=== PATIENT | female | born 1965 | race Caucasian/White ===

== ENCOUNTER → 2016-08-27 | Outpatient (CLI) | payer BC ==
[2016-08-27 16:32] LABS: BILIRUBIN,URINE NEGATIVE (NEG); CLARITY,URINE CLEAR (CLEAR); GLUCOSE, URINE (UA) NEGATIVE (NEG); LEUKOCYTE ESTERASE ,URINE NEGATIVE (NEG); NITRATE,URINE NEGATIVE (NEG); OCCULT BLOOD,URINE NEGATIVE (NEG); PH,URINE 5.5 (5.0-8.5); PROTEIN,URINE NEGATIVE (NEG); UROBILINOGEN,URINE 0.2 EU/dL (0.2)
[2016-08-27 16:35] LABS: URINE SAMPLE TYPE CLEAN CATCH URINE
== END ==
LOC: MOB LAB 15:14
PROVIDERS: ATTEND Physician Assistant Medical
DX: R35.0 Frequency of micturition (principal); L29.8 Other pruritus
CPT/HCPCS: 81003; 87210

== ENCOUNTER → 2016-08-28 | Outpatient (CLI) | payer BC | LOC: LAB 08:27 | PROVIDERS: ATTEND Nurse Practitioner Family | DX: L29.8 Other pruritus (principal) | CPT/HCPCS: 87491; 87591 ==

== ENCOUNTER 2016-12-22 14:05 | Observation (INO) | payer BC ==
[2016-12-22] MEDS ORDERED: ASPIRIN 81 MG (BABY) CHEWABLE TABLET PO ONE (14:21)
[2016-12-22] MEDS ORDERED: NORMAL SALINE 10 ML SYRINGE FLUSH IVP PRN (14:21)
--- NOTE | 2016-12-22 14:24 | EKG ---
[address] [address] Measurements Intervals [place] Rate: 87 P: 70 DC: 169 QRS: 36 QRSD: 90 T: 48 QT: 359 QTc: 404 Interpretive Statements SINUS RHYTHM WITH OCCASIONAL VENTRICULAR PREMATURE COMPLEXES POSSIBLE LEFT ATRIAL ENLARGEMENT POSSIBLE RIGHT VENTRICULAR CONDUCTION DELAY Compared to ECG 01/13/2016 11:23:44 Ventricular premature complex(es) now present Electronically Signed On 12-22-16 15:05:21 MDT by Rick Garibay [email or web address]
[2016-12-22] MEDS ORDERED: Sodium Chloride 0.9% 1,000 ML PRIMARY IV ONE (14:27)
[2016-12-22 14:28] LABS: BASOPHILS # (AUTO) 0.03 10*3/UL; BASOPHILS % (AUTO) 0.3 % (0-1); EOSINOPHILS # (AUTO) 0.03 10*3/UL; EOSINOPHILS % (AUTO) 0.3 % (0-8); HEMOGLOBIN 13.8 g/dL (12.0-16.0); MEAN CORPUSCULAR HEMOGLOBIN 25.5 PG (27-31); MEAN CORPUSCULAR HGB CONC 32.9 g/dL (33-37); MEAN CORPUSCULAR VOLUME 77.5 FL (81-99); MEAN PLATELET VOLUME 11.4 FL (7.4-12.2); MONOCYTES # (AUTO) 0.63 10*3/UL (0.3-0.8); MONOCYTES % (AUTO) 5.3 % (5-15); NEUTROPHILS # (AUTO) 9.63 10*3/UL; NEUTROPHILS % (AUTO) 81.1 % (50-80); RED BLOOD COUNT 5.42 10^6/uL (4.20-5.40)
[2016-12-22 14:31] LABS: PLATELET MORPHOLOGY COMMENT NORMAL MORPHOLOGY (NORM); RBC MORPHOLOGY COMMENT NORMAL MORPHOLOGY (NORM); WBC MORPHOLOGY COMMENT NORMAL MORPHOLOGY (NORM)
[2016-12-22 14:34] LABS: BLOOD UREA NITROGEN 21 mg/dL (7-22); BUN/CREATININE RATIO 26.25 (6-20); CALCIUM 9.2 mg/dL (8.7-10.7); EST GLOMERULAR FILTRATION > 60 (>60 ml/min/1.73m(2)); MAGNESIUM 1.8 mg/dL (1.6-2.4); SERUM ALBUMIN 4.3 g/dL (3.5-4.8)
[2016-12-22 14:50] LABS: CREATINE KINASE MB 3.02 NG/ML (0.00-5.00); TROPONIN I < 0.012 ng/mL (< 0.040)
[2016-12-22] MEDS ORDERED: ONDANSETRON 4 MG/2 ML VIAL IVP PRN (16:17)
[2016-12-22] MEDS ORDERED: LIDOCAINE W/ SODIUM BICARB 0.5 ML SYR SUBD PRN (16:17)
[2016-12-22] MEDS ORDERED: NITROGLYCERIN 0.4 MG SL TAB (BOTTLE OF 3) SL PRN ×2 (16:17→18:54)
[2016-12-22] MEDS ORDERED: MAG HYDROX/AL HYDROX/SIMETH 30 ML SUSP PO PRN (16:17)
--- NOTE | 2016-12-22 16:32 | PDOC ---
Chest Pain HPI - General Chief Complaint: Chest Pain Stated Complaint: CHEST PAIN Date Seen by Provider: 12/22/16 Time Seen by Provider: 14:10 Source: Patient Exam Limitations: POSITIVE: No limitations Treatment Prior to Arrival: REPORTS: None Nurse's Notes Reviewed & Considered: Yes - History of Present Illness Initial Comments: The patient is a 51-year-old female who presents to the emergency department by private vehicle with complaints of chest pain. She states that she had fairly sudden onset of mid chest pain that radiated through to her back and up into her neck while sitting on the couch at approximately 11:30 this morning. She states that she has had some similar pains off and on for the past several months however her pain is never lasted this long or been this intense. By the time she arrives in the emergency department her pain is lessening some although is still present. She denies any associated shortness of breath. She has having some palpitations and sensation of skipped beats which she states she has chronically. She denies any pain or swelling in her lower extremities. She does not have any known history of heart disease. She does have a history of hypertension however is currently not taking medication after she lost weight and her blood pressure improved. She does not have any history of tobacco use. She denies diabetes or hyperlipidemia. She does report a prior history of PE. She is not currently on any form of estrogen or hormone replacement. - Patient Home Medications Home Medications: Home Medications Methylprednisolone [Medrol] 4 mg PO BID #1 packet 12/20/16 - Patient Allergies Allergies/Adverse Reactions: Allergies Allergy/AdvReac Type Severity Reaction Status Date / Time Sulfa (Sulfonamide Allergy Intermediate RASH Verified 12/22/16 16:25 Antibiotics) Past Medical History - heen HEENT History: Denies History Cardiovascular History: Hypertension Additional Cardiovasular History: TXD IN PAST BUT NOW HAS RESOLVED WITH PATIENTS WEIGHT LOSS. Respiratory History: Pulmonary Embolism Gastrointestinal History: Denies History Genitourinary History: Denies History Endocrine History: Denies History Musculoskeletal History: Denies History Prosthesis or Implant: No Additional Musculoskeletal History: LEFT SHOULDER SURGERY Neurological History: Migraines, Other (please comment) Additional Neurological History: VERTIGO Blood Disorders: Denies History Additional Blood Disorders History: PE Psychiatric History: Denies History History of Sexually Transmitted Diseases: No Female Reproductive History: Other (please comment) Additional Female Reproductive History: PARTIAL HYSTERECTOMY Cancer History: Denies History In Past Year Been Physically Harmed or Verbally Threatened: No (PER PATIENT) History of MDRO: No History of Other Communicable Diseases: Yes (SHINGLES) Tobacco Use: Never Smoker Alcohol Use: Rarely Substance Use Type: None Previous Surgical History: Yes Type / Date of Surgery: PARTIAL HYST WITH TVT/ LEFT SHOULDER SCOPE/ EXP LAPAROTOMY FOR KINKED BOWEL/ D&C X 2/ TUBAL Anesthesia Reactions: No (DIFFICULTY WAKING UP AFTER ANESTH.) Malignant Hyperthermia: No Family History of Malignant Hyperthermia: No Significant Family History: Cancer, Hypertension Past Medical History Reviewed: Reviewed - No Changes ROS - Limitations ROS Limitations: No Limitations Constitution: DENIES: Chills, Fever Cardiovascular: REPORTS: Chest Pain, Heart Palpitations. DENIES: Heart Racing, Edema Respiratory: DENIES: Hurts To Breathe, Shortness Of Breath Neurological: REPORTS: Denies Neuro Symptoms Gastrointestinal: REPORTS: Denies GI Symptoms Musculoskeletal: REPORTS: Denies MS Symptoms Eyes: REPORTS: Denies Symptoms ENT: REPORTS: Denies Symptoms Skin: DENIES: Rash Chest Pain PE - General Appearance General Appearance: REPORTS: Alert, Cooperative, No Acute Distress - HEENT HEENT: POSITIVE: Head Inspection Nml - Neck Neck: REPORTS: Normal Inspection. DENIES: JVD Present - Respiratory Respiratory: REPORTS: No Respiratory Distress, Breath Sounds Normal - Cardiovascular Cardiovascular: REPORTS: Regular Rate and Rhythm, Heart Sounds Normal Peripheral Pulses: Dorsalis-pedis (R): 2+, Dorsalis-pedis (L): 2+ - Abdomen Abdomen: Soft: (All Quadrants), Denies Tenderness: (All Quadrants), No Distention: (All Quadrants) - Extremities Extremity: Normal ROM: (All Extremities), Normal Inspection: (All Extremities) - Neurological / Psychological Neurological: POSITIVE: Oriented X3, Motor Normal, Sensation Normal Chest Pain Progress - Results Reviewed by me Xrays/CTs/US Reviewed by me: Yes Radiology Findings: Chest x-ray shows normal heart size and normal lung sinha. Lab Results Reviewed: Yes Lab Results:: Laboratory Results 12/22/16 Range/Units 14:18 WBC 11.85 H (4.8-10.8) 10^3/uL RBC 5.42 H (4.20-5.40) 10^6/uL Hgb 13.8 (12.0-16.0) g/dL Hct 42.0 (37.0-47.0) % MCV 77.5 L (81-99) FL MCH 25.5 L (27-31) PG MCHC 32.9 L (33-37) g/dL RDW Std Deviation 40.1 (39-50) fL RDW Coeff of Pramod 14.4 (11.5-14.5) % Plt Count 220 (140-350) 10*3/uL MPV 11.4 (7.4-12.2) FL Immature Gran % (Auto) 0.3 (0-5) % Neut % (Auto) 81.1 H (50-80) % Lymph % (Auto) 12.7 (10-50) % [place] % (Auto) 5.3 (5-15) % Eos % (Auto) 0.3 (0-8) % Baso % (Auto) 0.3 (0-1) % Immature Gran # (Auto) 0.03 10*3/UL Neut # (Auto) 9.63 10*3/UL Lymph # (Auto) 1.50 10*3/uL [place] # (Auto) 0.63 (0.3-0.8) 10*3/UL Eos # (Auto) 0.03 10*3/UL Baso # (Auto) 0.03 10*3/UL WBC Morphology Comment Normal morphology (NORM) Plt Morphology Comment Normal morphology (NORM) RBC Morph Comment Normal morphology (NORM) D-Dimer 0.23 (0.00-0.59) mg/L Sodium 140 (135-145) meq/L Potassium 3.7 L (3.8-5.2) meq/L Chloride 106 (98-112) meq/L Carbon Dioxide 24 (23-33) meq/L Anion Gap 10 (5-20) BUN 21 (7-22) mg/dL Creatinine 0.8 (0.50-1.20) mg/dL Estimated GFR > 60 (>60 ml/min/1.73m(2)) BUN/Creatinine Ratio 26.25 H (6-20) Glucose 98 (78-110) mg/dL Calculated Osmolality 292.0 (267-292) mOsm/kg Calcium 9.2 (8.7-10.7) mg/dL Magnesium 1.8 (1.6-2.4) mg/dL Total Bilirubin 0.7 (0.3-1.2) mg/dL AST 23 (8-39) IU/L ALT 36 (9-52) IU/L Alkaline Phosphatase 69 (38-126) IU/L CK-MB (CK-2) 3.02 (0.00-5.00) NG/ML Troponin I < 0.012 (< 0.040) ng/mL Total Protein 7.4 (6.1-8.0) g/dL Albumin 4.3 (3.5-4.8) g/dL Globulin 3.1 (2.50-4.10) g/dL Albumin/Globulin Ratio 1.30 (1.3-2.0) mg/g EKG Interpreted/Reviewed By Me:: Yes EKG Interpretation:: POSITIVE: Normal Sinus Rhythm, Normal Rate, Normal Intervals, Normal QRS, Normal ST/T - Patient's Progress MDM / ED Course: The patient's initial EKG shows no obvious acute ST segment changes. She was given aspirin per chest pain protocol. Her pain gradually subsided and basically resolved while she was here in the emergency department. Her initial blood work including d-dimer and troponin are essentially unremarkable. Her chest x-ray is also normal. These findings were discussed with the patient. Decision was made to admit the patient for further cardiac monitoring and cardiac workup. Dr. Pearce has agreed to admit the patient and the patient is in agreement with this plan. - Consult Counseled: POSITIVE: Patient, RE: Lab Results, RE: Radiology Results, RE: DX, RE : Need for F/U Patient Care Time - Estimated PCT Patient Care Time (In Minutes): 35 Vital Signs - Recent Vital Signs Vital Signs: Vital Signs (Last 8 hours) Temp Pulse Pulse Resp BP Pulse Ox 12/22/16 14:08 98.0 F 91 91 19 164/88 97 - VS Reviewed Vital Signs Reviewed: Yes Discharge Clinical Impression: Chest pain Discharge Disposition: Admit to Observation Condition: Stable
[2016-12-22] MEDS: MORPHINE SULFATE 2 MG/1 ML IV PRN (16:50)
[2016-12-22 20:36] LABS: TROPONIN I < 0.012 ng/mL (< 0.040)
--- NOTE | 2016-12-22 21:11 | PDOC ---
History and Physical - History of Present Illness History of Present Illness: Is a very nice 59-year-old female who was seen in the emergency room complaining of chest pain she states that this was acute while she was sitting was a little short of breath with it no diaphoresis no nausea or vomiting did radiate to her back and neck pain was relieved by the time she was seen in the emergency room she is currently being treated for canker sores/singles there are her mouth not on her skin also she's been very stressful secondary to a divorce. She is chest pain-free at present time but she did have some chest pain about 2 hours ago which was relieved by nitroglycerin and CT scan of her chest was ordered to rule out PE since she does have a history of pulmonary embolus. She is also getting the resting part of her Lexiscan stress test and tomorrow she will not like to have the caffeine or chocolate since she has not taken it for 25 years . Past Medical History Medical History: Hypertension, shingles, pulmonary embolism, migraines long time ago Surgical History: PARTIAL HYST WITH TVT/ LEFT SHOULDER SCOPE/ EXP LAPAROTOMY FOR KINKED BOWEL/ D&C X 2/ TUBAL Tobacco Use: Never Smoker Substance Use Type: None Medication / Allergies Home Medications: Home Medications Medication Instructions Recorded Confirmed Type Methylprednisolone [Medrol] 4 mg PO BID #1 packet 12/20/16 12/22/16 Clinic Allergies/Adverse Reactions: Allergies Allergy/AdvReac Type Severity Reaction Status Date / Time Sulfa (Sulfonamide Allergy Intermediate RASH Verified 12/22/16 16:25 Antibiotics) Review of Systems - Review of Systems All Systems: Reviewed & No Additional Complaints Except as Stated - Constitutional Constitutional: DENIES: Weight Gain, Fever/Chills, Night Sweats, Fatigue - Integumentary Integumentary: DENIES: Negative System Review, Rash, Superficial Wound, Laceration, Puncture Wound, Foreign Body, Itching, Dryness, Ulcers, Color Changes, Moles, Hair Loss, Hirsutism, Other, See HPI - Respiratory Respiratory: DENIES: Negative System Review, Cough, Sputum, Dyspnea At Rest, Dyspnea with Exertion, Pleuritic Pain, Hemoptysis, Wheezing, Other, See HPI - Cardiovascular Cardiovascular: REPORTS: Chest Pain - Gastrointestinal Gastrointestinal / Abdominal: DENIES: Negative System Review, Nausea, Vomiting, Diarrhea, Constipation, Abdominal Pain, Bloody Stool, Poor Appetite, Heartburn, Regurgitation, Bloating, Lactose Intolerance, Melena, Bright Red Blood Per Rectum, Other, See HPI - Neurological Neurologic: DENIES: Negative System Review, Headache, Numbness/Paresthesia, Tremors, Weakness, Seizures, Head Trauma, LOC, Dizziness, Confusion, Memory Loss , Difficulty Walking, Incoordination, Other, See HPI - Psychiatric Psychiatric: REPORTS: Anxiety Exam - Vitals Vital Signs: Vital Signs Temperature 97.6 F Temperature Source Temporal Artery Scan Pulse Rate [Apical] 72 Pulse Rate [Telemetry] 76 Pulse Rate 72 Respiratory Rate 16 Blood Pressure [Right Arm] 146/87 Blood Pressure 142/93 Pulse Ox 95 Oxygen Delivery Method Room Air Height 5 ft 8 in Weight 72.121 kg - General General Appearance: POSITIVE: No Acute Distress, Cooperative - Head Head Exam: POSITIVE: Normal Inspection, Normocephalic, Atraumatic - Neck Neck Exam: POSITIVE: Normal Inspection - Respiratory Respiratory Exam: POSITIVE: Clear to Auscultation - Bilaterally, Breathing Non Labored, Normal To Percussion - Cardiovascular Cardiovascular Exam: POSITIVE: RRR, No Murmur, No Clicks, No Gallops - GI/Abdominal GI/Abdominal Exam: POSITIVE: Non Tender, Non Distended, Soft - Extremities Extremities Exam: POSITIVE: No Clubbing Present, No Edema Present, No Cyanosis Present - Neurological Neurological Exam: POSITIVE: Alert, Oriented x 3, CN II-XII Intact Results - Labs CBC and BMP: 12/22/16 14:18 12/22/16 14:18 Labs - Last 24 Hours: Laboratory Results 12/22/16 Range/Units 20:12 Total Creatine Kinase 59 (30-135) IU/L Troponin I < 0.012 (< 0.040) ng/mL Assessment and Plan - Patient Problems (1) Atypical chest pain Current Visit: Yes Status: Acute Comment: Most likely from anxiety she has been going through a stressful time nevertheless she does have a history of pulmonary embolus and the pain said is different from her usual anxiety Lexiscan stress test was ordered troponins are negative 2 CT scan results are pending discussed this with the patient and nursing (2) Anxiety Current Visit: Yes Status: Acute Comment: We will try some mild anxiety medication I think she will benefit much from this also this could be heartburn from her taking the prednisone from her shingles I will give her Protonix by mouth as well Photo / Body Diagrams - Uploaded Photos Uploaded Photos:
[2016-12-22] MEDS ORDERED: LORazepam 2 MG/1 ML VIAL IVP PRN (21:13)
--- NOTE | 2016-12-22 21:40 | DI ---
HISTORY: Chest pain. History of pulmonary embolus post shoulder surgery seven years ago. TECHNIQUE: Contiguous axial images of the chest were obtained and submitted for interpretation. FINDINGS: There is adequate opacification of the pulmonary arteries. There are no focal filling def ects noted to suggest pulmonary embolism. Irregularities noted at the distal segmental pulmonary arteries likely due to contrast streaming. There is no mediastinal, axillary, or hilar adenopathy. Thyroid gland is slightly irregular. There is no pleural or pericardial effusion. There is thickening of the esophagus. The limited sections of the upper abdomen demonstrate no acute findings. The trachea, main, and segmental bronchi demonstrate no endobronchial lesions. There is no focal pulmonary nodule or pulmonary mass. There is no pneumothorax. Bibasilar opacities suggest atelectasis. The visualized osseous structures demonstrate no destructive abnormality. Compared to prior exam 2007, the ground glass consolidation noted in the right lower lung has improve d. IMPRESSION: 1. No CT evidence of acute pulmonary embolus.
[2016-12-22] MEDS ORDERED: METHYLPREDNISOLONE 4 MG TAB DOSE PACK PO ONE (21:45)
[2016-12-22] MEDS: POTASSIUM CHLORIDE 20 MEQ TAB PO SCH (22:00)
[2016-12-22] MEDS: NORMAL SALINE 10 ML SYRINGE FLUSH IVP PRN (22:01)
[2016-12-23] MEDS: MORPHINE SULFATE 2 MG/1 ML IV PRN (02:19)
[2016-12-23] MEDS: NORMAL SALINE 10 ML SYRINGE FLUSH IVP PRN ×2 (02:20→20:30)
[2016-12-23] MEDS ORDERED: METHYLPREDNISOLONE 4 MG TAB DOSE PACK PO SCH (09:00)
[2016-12-23] MEDS ORDERED: ENOXAPARIN SODIUM 40 MG/0.4 ML SYRINGE SUBCUT SCH (09:00)
--- NOTE | 2016-12-23 12:21 | DCSUMMARY ---
Hospitalization Summary Hospital Course: Final Discharge Diagnosis: Current Visit Problems Problem Status Priority Diagnosed Code Anxiety Acute F41.9 Atypical chest pain Acute R07.89 Chest pain Acute R07.9 Diagnostic Data, Laboratory Data, and Procedures of Signifigance: Laboratory Results 12/22/16 12/22/16 12/23/16 Range/Units 14:18 20:12 02:15 WBC 11.85 H (4.8-10.8) 10^3/uL RBC 5.42 H (4.20-5.40) 10^6/uL Hgb 13.8 (12.0-16.0) g/dL Hct 42.0 (37.0-47.0) % MCV 77.5 L (81-99) FL MCH 25.5 L (27-31) PG MCHC 32.9 L (33-37) g/dL RDW Std Deviation 40.1 (39-50) fL RDW Coeff of Pramod 14.4 (11.5-14.5) % Plt Count 220 (140-350) 10*3/uL MPV 11.4 (7.4-12.2) FL Immature Gran % (Auto) 0.3 (0-5) % Neut % (Auto) 81.1 H (50-80) % Lymph % (Auto) 12.7 (10-50) % [place] % (Auto) 5.3 (5-15) % Eos % (Auto) 0.3 (0-8) % Baso % (Auto) 0.3 (0-1) % Immature Gran # (Auto) 0.03 10*3/UL Neut # (Auto) 9.63 10*3/UL Lymph # (Auto) 1.50 10*3/uL [place] # (Auto) 0.63 (0.3-0.8) 10*3/UL Eos # (Auto) 0.03 10*3/UL Baso # (Auto) 0.03 10*3/UL WBC Morphology Comment Normal morphology (NORM) Plt Morphology Comment Normal morphology (NORM) RBC Morph Comment Normal morphology (NORM) D-Dimer 0.23 (0.00-0.59) mg/L Sodium 140 (135-145) meq/L Potassium 3.7 L (3.8-5.2) meq/L Chloride 106 (98-112) meq/L Carbon Dioxide 24 (23-33) meq/L Anion Gap 10 (5-20) BUN 21 (7-22) mg/dL Creatinine 0.8 (0.50-1.20) mg/dL Estimated GFR > 60 (>60 ml/min/1.73m(2)) BUN/Creatinine Ratio 26.25 H (6-20) Glucose 98 (78-110) mg/dL Calculated Osmolality 292.0 (267-292) mOsm/kg Calcium 9.2 (8.7-10.7) mg/dL Magnesium 1.8 (1.6-2.4) mg/dL Total Bilirubin 0.7 (0.3-1.2) mg/dL AST 23 (8-39) IU/L ALT 36 (9-52) IU/L Alkaline Phosphatase 69 (38-126) IU/L Total Creatine Kinase 59 (30-135) IU/L CK-MB (CK-2) 3.02 (0.00-5.00) NG/ML Troponin I < 0.012 < 0.012 < 0.012 (< 0.040) ng/mL Total Protein 7.4 (6.1-8.0) g/dL Albumin 4.3 (3.5-4.8) g/dL Globulin 3.1 (2.50-4.10) g/dL Albumin/Globulin Ratio 1.30 (1.3-2.0) mg/g Course of Hospitalization: Missy rivera 51-year-old female who comes in admitted for chest pain she has been having a lot of stressful home situations lately going through a divorce. Troponins remain negative I discussed this with Dr. Chavez and the patient which opted of being transferred then to undergo catheter considering this is in the left main distribution she will be transferred there via ambulance ground patient is blood pressure stable at present time she will be given half a milligram of Ativan because of her anxiety before her trip no medications recommended by Dr. Chavez at this time other than the daily aspirin which she received. On the date of discharge, the patient was examined: Gen.: No acute distress, alert, nontoxic Heart: Regular rate and rhythm, no murmurs, clicks, gallops, or rubs Lungs: Clear to auscultation bilaterally, breathing is nonlabored Abdomen/GI: Normal tones on auscultation, soft, nontender, nondistended Musculoskeletal/extremities: No clubbing, cyanosis, or edema Vitals reviewed and are listed below Vital Signs (24 hrs) Temp Pulse Pulse Pulse Resp BP Pulse Ox 12/23/16 18:59 134 H 18 128/92 96 12/23/16 16:20 98.2 F 91 17 144/90 98 12/23/16 15:00 93 12/23/16 11:12 97.4 F 62 17 131/79 97 12/23/16 11:00 72 12/23/16 07:24 98.2 F 71 16 144/85 96 12/23/16 07:00 71 71 12/23/16 05:00 97.5 F 66 16 127/81 93 12/23/16 03:00 67 12/23/16 01:00 97.0 F 63 18 115/72 96 12/22/16 23:00 67 12/22/16 20:15 97.6 F 76 16 146/87 95 Assessment and Plan: 1. As per discharge assessments above 2. Disposition: [facility] under the care of Dr. Chavez 3. Condition on discharge, stable and improved. 4. Diet: As recommended by cardiology 5. Activities: resume normal activities 6. Follow-Up: 1. PCP 2. 7. Medications at the Time of Discharge: Home Medications Medication Instructions Recorded Confirmed Type Methylprednisolone [Medrol] 4 mg PO BID #1 packet 12/20/16 12/22/16 Clinic 8. Time, care, counseling and coordination of care for this discharge is greater than 30 minutes. Exam - Vitals Vital Signs: Vital Signs Temperature 97.4 F Temperature Source Temporal Artery Scan Pulse Rate [Pulse Oximeter] 62 Pulse Rate [Apical] 72 Pulse Rate [Telemetry] 66 Pulse Rate 72 Respiratory Rate 17 Blood Pressure [Right Arm] 131/79 Blood Pressure 142/93 Pulse Ox 97 Oxygen Delivery Method Room Air Height 5 ft 8 in Weight 72.121 kg Patient Problems - Patient Problem List (1) Atypical chest pain Current Visit: Yes Status: Acute (2) Anxiety Current Visit: Yes Status: Acute
[2016-12-23 13:55] LABS: BLOOD UREA NITROGEN 19 mg/dL (7-22); BUN/CREATININE RATIO 23.75 (6-20); CALCIUM 8.7 mg/dL (8.7-10.7); EST GLOMERULAR FILTRATION > 60 (>60 ml/min/1.73m(2)); SERUM ALBUMIN 3.6 g/dL (3.5-4.8)
[2016-12-23] MEDS: POTASSIUM CHLORIDE 20 MEQ TAB PO SCH ×2 (14:08→23:35)
[2016-12-23] MEDS: methylPREDNISolone 4 MG TABLET PO SCH ×3 (14:09→23:35)
--- NOTE | 2016-12-23 14:49 | STRESSTEST ---
[facility] [place] Interpretive Statements this is a very nice 51 yo female complaining of chest pain ,most likely atypical, stress part full of artifact . will await pictures [email or web address]
--- NOTE | 2016-12-23 17:56 | DI ---
HISTORY: Chest pain. PREVIOUS EXAM: None at this facility. TECHNIQUE: The patient was stressed by Dr. Pearce The standard Lexiscan protocol was used. Please see the Doctor's report. At the designated time, 30.9 mCi of 99Tc-sestimibi was injected IV. Stress gated tomograms were acquired within one hour of the i njection. For the resting scans, 30.8 mCi was injected IV and resting gated tomograms were acquired in similar fashion. Stress scans were performed on dec 22 2016; the resting scans were performed on dec 23 2016. FINDINGS: Quantitative and qualitative analyses were performed. Quantitative analysis was performed with the [facility] [id number] protocols. Very low dose limited CT scans of the chest are obtained through the level of the heart for attenuation correction of the gated stress and rest cardiac SPECT data. Non-attenuated and attenuated scans were processed for review, and the atten uated scans were used for final interpretation of this study. Review of the raw data images and software quality analyst files indicate that these series of examinations ar e of excellent quality. Stress and rest left ventricular chamber sizes are normal. Stress and rest LV EF are 81 % and 74 %, respectively. There is a very small nearly imperceptible mild degree of reversibility in a very small portion of t he anterior apex. There is normal wall motion with normal ejection fraction. Transient ischemic dilatation ratio is 0.93, with a normal range up to 1.22 for patients stressed wit h the Harris protocol and up to 1.33 for patients stressed with the Lexiscan protocol. The very low dose CT scans through the level of the heart show no coronary artery calcifications. The re is no adenopathy or evidence of lung nodules. IMPRESSION: 1. There is a very small mild intensity area of reversibility within the anterior apex. This may sim ply be artifactual, but since this is the region of the left anterior descending artery, this could r epresent underlying early disease within the left anterior descending artery. 2. There is normal wall motion and normal ejection fraction.
[2016-12-23] MEDS ORDERED: LORazepam 2 MG/1 ML VIAL IVP PRN (20:06)
[2016-12-23] MEDS ORDERED: ASPIRIN 325 MG TABLET PO SCH (20:15)
--- NOTE | 2016-12-23 21:13 | DI ---
[facility] CHEST X-RAY, 12/22/2016 2:21 PM : Clinical History: Chest pain. Previous Exam: 07/05/2008. There is no acute soft tissue or bony abnormality. Heart size is normal. Lungs are clear. Mediastinal structures are normal. There are no pulmonary nodules. Reading: Normal chest x-ray.
[2016-12-23 22:52] VITALS: RESP 16; TEMP 98
[2016-12-24] MEDS ORDERED: methylPREDNISolone 4 MG TABLET PO SCH (06:30)
[2016-12-25] MEDS ORDERED: METHYLPREDNISOLONE 4 MG TAB DOSE PACK PO SCH (06:30)
== END 2016-12-23 20:47 | disposition short-term general hospital (02) ==
LOC: ER 14:05 → MED/SURG 15:57
PROVIDERS: ADMIT Internal Medicine; ATTEND Internal Medicine
DX: R07.89 Other chest pain (principal); F41.9 Anxiety disorder, unspecified
CPT/HCPCS: 36415; 71010; 71275; 78452; 80053 ×2; 82550; 82553; 83735; 84484 ×2; 85025; 85379; 93005; 93010; 93016; 93017; 93018; 96374 ×2; 96375; 99284 ×2; A9500; J1650; J2785; J2060; J2270; J7030

== ENCOUNTER 2017-01-07 09:36 | Emergency (ER) | payer BC ==
[2017-01-07] MEDS ORDERED: ONDANSETRON 4 MG/2 ML VIAL IVP ONE (09:55)
[2017-01-07] MEDS ORDERED: LORazepam 2 MG/1 ML VIAL IVP ONE (09:55)
[2017-01-07] MEDS ORDERED: ASPIRIN 81 MG (BABY) CHEWABLE TABLET ONE (09:55)
[2017-01-07] MEDS ORDERED: ASPIRIN 81 MG (BABY) CHEWABLE TABLET PO ONE (09:55)
[2017-01-07] MEDS ORDERED: NITROGLYCERIN 0.4 MG SL TAB (BOTTLE OF 3) SL ONE ×2 (09:55)
[2017-01-07] MEDS ORDERED: MORPHINE SULFATE 4 MG/1 ML IVP ONE (09:55)
[2017-01-07] MEDS ORDERED: Sodium Chloride 0.9% 1,000 ML PRIMARY IV ONE (09:55)
--- NOTE | 2017-01-07 10:00 | PDOC ---
Chest Pain HPI - General Chief Complaint: Chest Pain Stated Complaint: chest pain Date Seen by Provider: 01/07/17 Time Seen by Provider: 09:52 Source: Patient, Old records Exam Limitations: POSITIVE: No limitations Treatment Prior to Arrival: REPORTS: None Nurse's Notes Reviewed & Considered: Yes - History of Present Illness Initial Comments: This is a very pleasant, tearful, 51-year-old female complaining of chest pain. She describes her chest pain as pressure like someone pushing on her chest. The pain radiates into her bilateral neck and into her back. She was seen approximately one week ago for the same symptoms and failed a nuclear stress test. She was started on a statin and lisinopril as well as hypertensive medications and has had no further problems until this morning. The heart catheterization that was done showed approximately 40-60% blockage she is unsure of which artery is blocked. She has some associated shortness of breath. She denies any fever chills or sweats, nausea vomiting or diarrhea, she denies myalgias and arthralgias. No hematuria or dysuria. Symptoms began approximately 0800 hours this morning. She has a history of previous DVT and PE. Body Location Affected: REPORTS: Chest Timing: REPORTS: Abrupt Duration: 1-3 hours Severity: Moderate Context: REPORTS: Rest Quality: REPORTS: "Pain", Sharpness, Pressure Radiation: REPORTS: Jaw (R), Jaw (L), Back Associated Symptoms: REPORTS: Shortness of Breath Modifying Factors: improves with: None Reported Similar Symptoms Previously: Yes Recently seen/treated/hospitalized: Yes Any Prior Injuries Related to Current Complaint?: No - Patient Home Medications Home Medications: Home Medications Atorvastatin Calcium 1 tab PO DAILY tab 12/28/16 Lisinopril 1 tab PO DAILY tab 12/28/16 Aspirin [Aspir 81] 81 mg PO DAILY 01/07/17 Metoprolol Succinate 25 mg PO DAILY 01/07/17 - Patient Allergies Allergies/Adverse Reactions: Allergies Allergy/AdvReac Type Severity Reaction Status Date / Time Sulfa (Sulfonamide Allergy Intermediate RASH Verified 01/07/17 09:51 Antibiotics) Past Medical History - heen HEENT History: Denies History Cardiovascular History: Hypertension Additional Cardiovasular History: TXD IN PAST BUT NOW HAS RESOLVED WITH PATIENTS WEIGHT LOSS. Respiratory History: Pulmonary Embolism Gastrointestinal History: Denies History Genitourinary History: Denies History Endocrine History: Denies History Musculoskeletal History: Denies History Prosthesis or Implant: No Additional Musculoskeletal History: LEFT SHOULDER SURGERY Neurological History: Migraines, Other (please comment) Additional Neurological History: VERTIGO Blood Disorders: Denies History Additional Blood Disorders History: PE Psychiatric History: Denies History History of Sexually Transmitted Diseases: No Cancer History: Denies History History of MDRO: No History of Other Communicable Diseases: Yes (SHINGLES) Alcohol Use: Rarely Substance Use Type: None Previous Surgical History: Yes Type / Date of Surgery: PARTIAL HYST WITH TVT/ LEFT SHOULDER SCOPE/ EXP LAPAROTOMY FOR KINKED BOWEL/ D&C X 2/ TUBAL Anesthesia Reactions: No (DIFFICULTY WAKING UP AFTER ANESTH.) Malignant Hyperthermia: No Significant Family History: Cancer, Hypertension ROS - Limitations ROS Limitations: No Limitations Constitution: REPORTS: Denies Symptoms Cardiovascular: REPORTS: Chest Pain Respiratory: REPORTS: Shortness Of Breath Neurological: REPORTS: Denies Neuro Symptoms Gastrointestinal: REPORTS: Denies GI Symptoms Endocrine: REPORTS: Denies Symptoms Musculoskeletal: REPORTS: Back Pain Genitourinary: REPORTS: Denies Symptoms Eyes: REPORTS: Denies Symptoms ENT: REPORTS: Denies Symptoms Skin: REPORTS: Denies Skin Symptoms Lympathic: REPORTS: Denies Lympathic Symptoms Immunologic: POSITIVE: Denies Symptoms Psychiatric: POSITIVE: Anxiety Chest Pain PE - General Appearance General Appearance: REPORTS: Alert, Cooperative, No Evidence of Trauma, Moderate Distress - HEENT HEENT: POSITIVE: Head Inspection Nml, Eyes Inspection Nml, Ears Inspection Nml, Nose Inspection Nml, PERRL, EOMI - Neck Neck: REPORTS: Normal Inspection - Respiratory Respiratory: REPORTS: No Respiratory Distress, Breath Sounds Normal, Chest Non- Tender - Cardiovascular Cardiovascular: REPORTS: Regular Rate and Rhythm, Heart Sounds Normal, No Murmur , No Gallop, No Friction Rub, No JVD - Abdomen Abdomen: Soft: (All Quadrants), Normal Bowel Sounds: (All Quadrants), Denies Tenderness: (All Quadrants) - Skin Skin: REPORTS: Intact, Normal For Race, Warm, Dry, No Rash - Extremities Extremity: Non-Tender: (All Extremities), Normal ROM: (All Extremities), Normal Inspection: (All Extremities), Pelvis Stable: (All Extremities) - Neurological / Psychological Neurological: POSITIVE: Affect Apporpriate, Oriented X3, Motor Normal, Sensation Normal Chest Pain Progress - Results Reviewed by me Xrays/CTs/US Reviewed by me: Yes Discussed with Radiologist: Yes Lab Results Reviewed: Yes Lab Results:: Laboratory Results 01/07/17 01/07/17 Range/Units 09:58 12:31 WBC 9.92 (4.8-10.8) 10^3/uL RBC 5.40 (4.20-5.40) 10^6/uL Hgb 13.5 (12.0-16.0) g/dL Hct 42.2 (37.0-47.0) % MCV 78.1 L (81-99) FL MCH 25.0 L (27-31) PG MCHC 32.0 L (33-37) g/dL RDW Std Deviation 40.5 (39-50) fL RDW Coeff of Pramod 14.4 (11.5-14.5) % Plt Count 193 (140-350) 10*3/uL MPV 11.5 (7.4-12.2) FL Immature Gran % (Auto) 0.3 (0-5) % Neut % (Auto) 67.0 (50-80) % Lymph % (Auto) 22.5 (10-50) % [place] % (Auto) 7.9 (5-15) % Eos % (Auto) 1.9 (0-8) % Baso % (Auto) 0.4 (0-1) % Immature Gran # (Auto) 0.03 10*3/UL Neut # (Auto) 6.65 10*3/UL Lymph # (Auto) 2.23 10*3/uL [place] # (Auto) 0.78 (0.3-0.8) 10*3/UL Eos # (Auto) 0.19 10*3/UL Baso # (Auto) 0.04 10*3/UL WBC Morphology Comment Normal morphology (NORM) Plt Morphology Comment Normal morphology (NORM) RBC Morph Comment Normal morphology (NORM) D-Dimer 0.43 (0.00-0.59) mg/L Sodium 139 (135-145) meq/L Potassium 3.8 (3.8-5.2) meq/L Chloride 104 (98-112) meq/L Carbon Dioxide 24 (23-33) meq/L Anion Gap 11 (5-20) BUN 20 (7-22) mg/dL Creatinine 0.8 (0.50-1.20) mg/dL Estimated GFR > 60 (>60 ml/min/1.73m(2)) BUN/Creatinine Ratio 25.00 H (6-20) Glucose 102 (78-110) mg/dL Calculated Osmolality 290.0 (267-292) mOsm/kg Calcium 8.7 (8.7-10.7) mg/dL Magnesium 1.7 (1.6-2.4) mg/dL Total Bilirubin 0.5 (0.3-1.2) mg/dL AST 36 (8-39) IU/L ALT 33 (9-52) IU/L Alkaline Phosphatase 53 (38-126) IU/L Troponin I < 0.012 < 0.012 (< 0.040) ng/mL C-Reactive Protein < 0.5 (0.0-0.9) mg/dL Total Protein 6.7 (6.1-8.0) g/dL Albumin 4.1 (3.5-4.8) g/dL Globulin 2.6 (2.50-4.10) g/dL Albumin/Globulin Ratio 1.50 (1.3-2.0) mg/g TSH 1.01 (0.2700-4.2000) uIU/mL Free T4 0.93 (0.93-1.71) ng/dL EKG Interpretation:: POSITIVE: Normal Sinus Rhythm, Normal Intervals, Normal ST/ T - Patient's Progress Pain Medication Addressed: POSITIVE: Yes Re-Examine Time: 13:04 Status: POSITIVE: Improved MDM / ED Course: Patient was examined, IV started, blood drawn and sent to the lab for studies, radiographic and EKG studies were obtained. Patient received 324 mg of baby aspirin, sublingual nitroglycerin, normal saline, Zofran, and morphine sulfate. Her pain gradually improved over time. Findings: CBC is unremarkable, comprehensive metabolic panel is within normal limits, serial troponins are 0, EKG shows sinus rhythm with rate of approximately 84 beats a minute per my interpretation, chest x-ray shows no acute cardiopulmonary decompensation. Assessment: Chest pain with normal EKG and troponins. Plan: Discharge home. Follow up with her search coordinator Dr. Chavez in [facility]. Return to the emergency room if there is return of symptoms. Quality Measure Initiative: CP/AMI: POSITIVE: EKG, ASA Quality Measure Initiative: CAP: POSITIVE: CXR or CT - Consult Counseled: POSITIVE: Patient, RE: Lab Results, RE: Radiology Results, RE: DX, RE : Need for F/U Patient Care Time - Estimated PCT Patient Care Time (In Minutes): 45 Vital Signs - Recent Vital Signs Vital Signs: Vital Signs (Last 8 hours) Temp Pulse Pulse Resp BP Pulse Ox 01/07/17 09:43 98.2 F 101 H 101 H 18 147/87 99 - VS Reviewed Vital Signs Reviewed: Yes Discharge Clinical Impression: Chest pain Discharge Disposition: Discharged to Home Condition: Stable Patient Instructions Given at Discharge: Chest Pain (ED)
[2017-01-07 10:04] LABS: BASOPHILS # (AUTO) 0.04 10*3/UL; BASOPHILS % (AUTO) 0.4 % (0-1); EOSINOPHILS # (AUTO) 0.19 10*3/UL; EOSINOPHILS % (AUTO) 1.9 % (0-8); HEMATOCRIT 42.2 % (37.0-47.0); HEMOGLOBIN 13.5 g/dL (12.0-16.0); LYMPHOCYTES # (AUTO) 2.23 10*3/uL; MEAN CORPUSCULAR VOLUME 78.1 FL (81-99); MEAN PLATELET VOLUME 11.5 FL (7.4-12.2); MONOCYTES # (AUTO) 0.78 10*3/UL (0.3-0.8); MONOCYTES % (AUTO) 7.9 % (5-15); NEUTROPHILS # (AUTO) 6.65 10*3/UL
[2017-01-07 10:05] LABS: PLATELET MORPHOLOGY COMMENT NORMAL MORPHOLOGY (NORM); RBC MORPHOLOGY COMMENT NORMAL MORPHOLOGY (NORM); WBC MORPHOLOGY COMMENT NORMAL MORPHOLOGY (NORM)
[2017-01-07 10:11] LABS: BLOOD UREA NITROGEN 20 mg/dL (7-22); CALCIUM 8.7 mg/dL (8.7-10.7); EST GLOMERULAR FILTRATION > 60 (>60 ml/min/1.73m(2)); MAGNESIUM 1.7 mg/dL (1.6-2.4); SERUM ALBUMIN 4.1 g/dL (3.5-4.8)
[2017-01-07 10:16] LABS: C-REACTIVE PROTEIN < 0.5 mg/dL (0.0-0.9)
[2017-01-07 10:20] VITALS: RESP 18; TEMP 98.2
[2017-01-07 10:33] LABS: FREE T4 (FREE THYROXINE) 0.93 ng/dL (0.93-1.71)
--- NOTE | 2017-01-07 11:00 | DI ---
AP CHEST X-RAY, 01/07/2017 9:55 AM : Clinical History: Chest pain Previous Exam: December 22, 2016 There is no acute soft tissue or bony abnormality. Heart size is normal. Lungs are clear. Mediastinal structures are normal. There are no pulmonary nodules. There is stable widening of the left acromioclavicular joint and mild degenerative changes of the rig ht acromioclavicular joint. Reading: Normal chest x-ray.
--- NOTE | 2017-01-07 11:59 | EKG ---
[address] [address] Measurements Intervals [place] Rate: 89 P: 76 DC: 169 QRS: 69 QRSD: 103 T: 66 QT: 352 QTc: 399 Interpretive Statements SINUS RHYTHM POSSIBLE RIGHT VENTRICULAR CONDUCTION DELAY [RSR (QR) IN V1/V2] Compared to ECG 12/22/2016 15:08:54 Ventricular premature complex(es) no longer present Criterion for Left Atrial Enlargement no longer present Electronically Signed On 01-08-17 12:16:37 MDT by Irving Grewal MD [id number]
== END 2017-01-07 13:18 | disposition home or self-care (01) ==
LOC: ER 09:36
DX: R07.9 Chest pain, unspecified (principal); R06.02 Shortness of breath; Z86.718 Personal history of other venous thrombosis and embolism
CPT/HCPCS: 36415; 71010; 80053; 83735; 84439; 84443; 84484; 85025; 85379; 86140; 93005; 93010; 96374; 96375; 99284; J2060; J2270; J2405; J7030

== ENCOUNTER 2017-03-19 14:00 | Emergency (ER) | payer BC ==
[2017-03-19] MEDS ORDERED: NORMAL SALINE 10 ML SYRINGE FLUSH IVP PRN (14:14)
[2017-03-19] MEDS ORDERED: NITROGLYCERIN 0.4 MG SL TAB (BOTTLE OF 3) SL PRN (14:14)
[2017-03-19] MEDS ORDERED: ASPIRIN 81 MG (BABY) CHEWABLE TABLET PO ONE (14:14)
--- NOTE | 2017-03-19 14:16 | EKG ---
[address] [address] Measurements Intervals [place] Rate: 86 P: 60 CO: 178 QRS: 39 QRSD: 89 T: 46 QT: 358 QTc: 401 Interpretive Statements SINUS RHYTHM Compared to ECG 01/07/2017 09:43:13 No significant changes Electronically Signed On 03-19-17 16:19:48 MDT by Rick Garibay [id number]
[2017-03-19 14:21] LABS: BASOPHILS # (AUTO) 0.08 10*3/UL; EOSINOPHILS # (AUTO) 0.16 10*3/UL; HEMATOCRIT 41.6 % (37.0-47.0); HEMOGLOBIN 13.5 g/dL (12.0-16.0); LYMPHOCYTES # (AUTO) 1.84 10*3/uL; MEAN CORPUSCULAR HEMOGLOBIN 25.7 PG (27-31); MEAN CORPUSCULAR HGB CONC 32.5 g/dL (33-37); MEAN CORPUSCULAR VOLUME 79.1 FL (81-99); MEAN PLATELET VOLUME 11.6 FL (7.4-12.2); MONOCYTES # (AUTO) 0.55 10*3/UL (0.3-0.8); NEUTROPHILS # (AUTO) 5.26 10*3/UL; NEUTROPHILS % (AUTO) 66.6 % (50-80); RED BLOOD COUNT 5.26 10^6/uL (4.20-5.40)
[2017-03-19 14:26] LABS: BLOOD UREA NITROGEN 21 mg/dL (7-22); BUN/CREATININE RATIO 23.33 (6-20); CALCIUM 9.5 mg/dL (8.7-10.7); EST GLOMERULAR FILTRATION > 60 (>60 ml/min/1.73m(2)); SERUM ALBUMIN 4.4 g/dL (3.5-4.8)
[2017-03-19 14:29] LABS: PLATELET MORPHOLOGY COMMENT NORMAL MORPHOLOGY (NORM); RBC MORPHOLOGY COMMENT NORMAL MORPHOLOGY (NORM); WBC MORPHOLOGY COMMENT NORMAL MORPHOLOGY (NORM)
[2017-03-19 14:32] VITALS: RESP 16; TEMP 98.9
[2017-03-19 14:39] LABS: CREATINE KINASE MB 2.99 NG/ML (0.00-5.00)
[2017-03-19 14:57] LABS: TROPONIN I < 0.012 ng/mL (< 0.040)
--- NOTE | 2017-03-19 17:11 | DI ---
Chest pain Comparison: December 30, 2016 Heart size normal. Pulmonary vasculature unremarkable Lungs fully expanded and clear. No pleural effusion. Impression Unremarkable plain film study of the chest
--- NOTE | 2017-03-19 19:27 | PDOC ---
Chest Pain HPI - General Chief Complaint: Chest Pain Stated Complaint: CHEST PAIN STARTING YESTERDAY, WORSE TODAY Date Seen by Provider: 03/19/17 Time Seen by Provider: 14:00 Source: Patient Exam Limitations: POSITIVE: No limitations Treatment Prior to Arrival: REPORTS: None Nurse's Notes Reviewed & Considered: Yes - History of Present Illness Initial Comments: The patient is a 51-year-old female who presents to the emergency department with chest pain. She states that yesterday early afternoon she had onset of some chest pain and tightness as well as some tightness in the back of her neck and throat. This pain persisted through the night last night and this morning worsened somewhat after riding her bike. She has had continued pain all day which seemed to be getting slightly worse this afternoon. Her pain is not worsened with taking deep breath. She denies palpitations, shortness of breath , diaphoresis, nausea or vomiting or any other associated complaints. She was evaluated here in our hospital in December with complaints of chest pain. She had been admitted to the hospital at which time she had an abnormal nuclear stress test. She had been referred to [facility] and underwent cardiac catheterization per Dr. Stephens. 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 She had initially been started on multiple medications. She went to Dr. Young for a second plumbing designer opinion and he had taken her off of all of her medications except for Lipitor and aspirin. She states that since December she has had some mild intermittent chest pains and was evaluated one time here in the emergency room and had a negative workup. She denies any abdominal pain or heartburn symptoms. She does report that she was lifting heavy cases of water yesterday prior to onset of pain. - Patient Home Medications Home Medications: Home Medications Atorvastatin Calcium 1 tab PO DAILY tab 12/28/16 Aspirin [Aspir 81] 81 mg PO DAILY 01/07/17 - Patient Allergies Allergies/Adverse Reactions: Allergies Allergy/AdvReac Type Severity Reaction Status Date / Time Sulfa (Sulfonamide Allergy Intermediate RASH Verified 03/19/17 14:20 Antibiotics) Past Medical History - heen HEENT History: Denies History Cardiovascular History: Hypertension Additional Cardiovasular History: TXD IN PAST BUT NOW HAS RESOLVED WITH PATIENTS WEIGHT LOSS. PATIENT RECENTLY DIAGNOSED WITH A BLOCKAGE OF "HER MAIN ARTERY" FOLLOWING A FAILED NUCLEAR STRESS TEST AND CARDIAC CATHETERIZATION WITH DR COLEMAN. Respiratory History: Pulmonary Embolism Gastrointestinal History: Denies History Genitourinary History: Denies History Endocrine History: Denies History Musculoskeletal History: Denies History Prosthesis or Implant: No Additional Musculoskeletal History: LEFT SHOULDER SURGERY Neurological History: Migraines, Other (please comment) Additional Neurological History: VERTIGO Blood Disorders: Denies History Additional Blood Disorders History: PE Psychiatric History: Denies History History of Sexually Transmitted Diseases: No Female Reproductive History: Hysterectomy LMP: 4 YEARS AGO Cancer History: Denies History In Past Year Been Physically Harmed or Verbally Threatened: No (PER PATIENT) History of MDRO: No History of Other Communicable Diseases: Yes (SHINGLES) Tobacco Use: Never Smoker Alcohol Use: Occasionally Substance Use Type: None Previous Surgical History: Yes Type / Date of Surgery: PARTIAL HYST WITH TVT/ LEFT SHOULDER SCOPE/ EXP LAPAROTOMY FOR KINKED BOWEL/ D&C X 2/ TUBAL Anesthesia Reactions: No (DIFFICULTY WAKING UP AFTER ANESTH.) Malignant Hyperthermia: No Family History of Malignant Hyperthermia: No Significant Family History: Cancer, Hypertension Past Medical History Reviewed: Reviewed - No Changes ROS - Limitations ROS Limitations: No Limitations Constitution: DENIES: Chills, Fever Cardiovascular: REPORTS: Chest Pain, Other (She reports that her blood pressure this morning at home was in the 140s over 90s). DENIES: Heart Racing, Heart Palpitations, Edema Respiratory: REPORTS: Denies Resp Symptoms. DENIES: Hurts To Breathe, Shortness Of Breath Neurological: REPORTS: Denies Neuro Symptoms Gastrointestinal: REPORTS: Denies GI Symptoms Eyes: REPORTS: Denies Symptoms ENT: REPORTS: Denies Symptoms Skin: DENIES: Rash Chest Pain PE - General Appearance General Appearance: REPORTS: Alert, Cooperative, No Acute Distress - HEENT HEENT: POSITIVE: Head Inspection Nml, Eyes Inspection Nml, Ears Inspection Nml, Pharynx Inspect. Nml, PERRL, EOMI - Neck Neck: REPORTS: Normal Inspection. DENIES: JVD Present - Respiratory Respiratory: REPORTS: No Respiratory Distress, Breath Sounds Normal, Other ( Palpation of the left anterior upper chest wall does result in some shooting pain towards her back and lower neck) - Cardiovascular Cardiovascular: REPORTS: Regular Rate and Rhythm, Heart Sounds Normal Peripheral Pulses: Dorsalis-pedis (R): 2+, Dorsalis-pedis (L): 2+ - Abdomen Abdomen: Soft: (All Quadrants), Denies Tenderness: (All Quadrants), No Distention: (All Quadrants) - Skin Skin: REPORTS: Intact, No Rash - Extremities Extremity: Normal ROM: (All Extremities), Normal Inspection: (All Extremities) - Neurological / Psychological Neurological: POSITIVE: Other (No focal neurologic deficits) Chest Pain Progress - Results Reviewed by me Xrays/CTs/US Reviewed by me: Yes Discussed with Radiologist: Yes Radiology Findings: Chest x-ray is normal per radiologist. Lab Results Reviewed: Yes Lab Results:: Laboratory Results 03/19/17 Range/Units 14:17 WBC 7.90 (4.8-10.8) 10^3/uL RBC 5.26 (4.20-5.40) 10^6/uL Hgb 13.5 (12.0-16.0) g/dL Hct 41.6 (37.0-47.0) % MCV 79.1 L (81-99) FL MCH 25.7 L (27-31) PG MCHC 32.5 L (33-37) g/dL RDW Std Deviation 40.7 (39-50) fL RDW Coeff of Pramod 14.1 (11.5-14.5) % Plt Count 181 (140-350) 10*3/uL MPV 11.6 (7.4-12.2) FL Immature Gran % (Auto) 0.1 (0-5) % Neut % (Auto) 66.6 (50-80) % Lymph % (Auto) 23.3 (10-50) % [place] % (Auto) 7.0 (5-15) % Eos % (Auto) 2.0 (0-8) % Baso % (Auto) 1.0 (0-1) % Immature Gran # (Auto) 0.01 10*3/UL Neut # (Auto) 5.26 10*3/UL Lymph # (Auto) 1.84 10*3/uL [place] # (Auto) 0.55 (0.3-0.8) 10*3/UL Eos # (Auto) 0.16 10*3/UL Baso # (Auto) 0.08 10*3/UL WBC Morphology Comment Normal morphology (NORM) Plt Morphology Comment Normal morphology (NORM) RBC Morph Comment Normal morphology (NORM) D-Dimer < 0.19 (0.00-0.59) mg/L Sodium 140 (135-145) meq/L Potassium 3.7 L (3.8-5.2) meq/L Chloride 106 (98-112) meq/L Carbon Dioxide 23 (23-33) meq/L Anion Gap 11 (5-20) BUN 21 (7-22) mg/dL Creatinine 0.9 (0.50-1.20) mg/dL Estimated GFR > 60 (>60 ml/min/1.73m(2)) BUN/Creatinine Ratio 23.33 H (6-20) Glucose 107 (78-110) mg/dL Calculated Osmolality 292.0 (267-292) mOsm/kg Calcium 9.5 (8.7-10.7) mg/dL Total Bilirubin 0.7 (0.3-1.2) mg/dL AST 47 H (8-39) IU/L ALT 35 (9-52) IU/L Alkaline Phosphatase 58 (38-126) IU/L CK-MB (CK-2) 2.99 (0.00-5.00) NG/ML Troponin I < 0.012 (< 0.040) ng/mL Total Protein 6.9 (6.1-8.0) g/dL Albumin 4.4 (3.5-4.8) g/dL Globulin 2.5 (2.50-4.10) g/dL Albumin/Globulin Ratio 1.70 (1.3-2.0) mg/g EKG Interpreted/Reviewed By Me:: Yes EKG Interpretation:: POSITIVE: Normal Sinus Rhythm, Normal Rate, Normal QRS, Normal ST/T - Patient's Progress MDM / ED Course: EKG done shortly after arrival revealed normal sinus rhythm with no acute ST segment or T-wave changes. She did receive aspirin per chest pain protocol. Her pain level on arrival was about a 5 out of 10. Her blood pressure was also elevated in the 170s over 90s. She did receive 1 dose of nitroglycerin. She had some minimal improvement in pain. Her blood pressure came down into the 140s over 80s. All of her blood work including d-dimer and troponin were normal. I did discuss the patient with the plumbing designer on-call for Dr. young who was Dr. Wilson. Given that she has a normal EKG and a normal troponin after nearly 24 hours of continuous pain she has essentially ruled out as far as ID. Her symptoms and clinical presentation are not consistent with unstable angina. He thought that this pain was most likely not cardiac in etiology. These findings were discussed with the patient. She was doing some heavy lifting yesterday and this may represent some musculoskeletal pain. At this time recommended ibuprofen 4-600 mg every 6 hours as needed for pain. She is advised return to the emergency room if she develops any worsening or change in symptoms. She'll follow-up with primary care in 3-5 days. - Consult Counseled: POSITIVE: Patient, RE: Lab Results, RE: Radiology Results, RE: DX, RE : Need for F/U Patient Care Time - Estimated PCT Patient Care Time (In Minutes): 40 Vital Signs - Recent Vital Signs Vital Signs: Vital Signs (Last 8 hours) Temp Pulse Pulse Resp BP Pulse Ox 03/19/17 14:05 86 03/19/17 14:00 98.9 F 97 16 174/95 97 - VS Reviewed Vital Signs Reviewed: Yes Discharge Clinical Impression: Chest pain Discharge Disposition: Discharged to Home Condition: Stable Patient Instructions Given at Discharge: Chest Pain (ED) Additional Instructions: All the testing done here in the emergency department today was reassuring. The EKG did not show any evidence of heart attack and your blood work was all reassuring. I did discuss her symptoms with the plumbing designer ton container filler in [place] and he did not feel that sure current pain was cardiac related. Given that shoe or lifting water bottles yesterday this may be musculoskeletal pain. Recommend ibuprofen 4-600 mg every 6 hours as needed for pain. Return to the emergency room if increased pain, shortness of breath, palpitations, any worsening or change in symptoms. Recommend follow-up with Patricio Camara in 3- 5 days. Follow Up With: PATRICIO BOYLE FNP [Primary Care Provider] -
== END 2017-03-19 16:00 | disposition home or self-care (01) ==
LOC: ER 14:00
DX: R07.9 Chest pain, unspecified (principal); M54.2 Cervicalgia
CPT/HCPCS: 71010; 80053; 82553; 84484; 85025; 85379; 93005; 93010; 99283